=== PATIENT | female | born 1955 ===

== ENCOUNTER 2017-05-23 16:49 | Emergency (ER) | payer OTHER ==
[2017-05-23] MEDS ORDERED: Adacel (T-DAP) 0.5 ML VIAL ONE (16:56)
[2017-05-23] MEDS ORDERED: Lidocaine 1% 20 ML MDV ONE (16:59)
[2017-05-23] MEDS ORDERED: Ibuprofen 800 MG TAB ONE (17:38)
[2017-05-23] MEDS ORDERED: Triple Antibiotic Oint 1 GM Packet ONE (17:39)
== END 2017-05-23 17:47 | disposition home or self-care (01) ==
LOC: NAV ERS 16:49
DX: S50.851A Superficial foreign body of right forearm, initial encounter (principal); Z79.899 Other long term (current) drug therapy; W45.8XXA Other foreign body or object entering through skin, initial encounter
CPT/HCPCS: 90471; 90715; J2001